=== PATIENT | female | born 1995 | race Two or more races ===

== ENCOUNTER 2018-01-02 17:40 | Emergency (ER) | payer MEDICAID, OTHER ==
[~2018-01-02] VITALS: Ht 162.6 cm; Wt 76.3 kg
[2018-01-02 17:51] VITALS: BP 118/71
[2018-01-02] MEDS ORDERED: PREN-3 PO (20:16)
== END 2018-01-02 20:17 | disposition home or self-care (01) ==
LOC: ED 20:10
DX: O26.892 Other specified pregnancy related conditions, second trimester (principal); Z3A.20 20 weeks gestation of pregnancy; M25.562 Pain in left knee
CPT/HCPCS: 99284